=== PATIENT | female | born 1980 | race Caucasian/White ===

== ENCOUNTER 2020-09-20 10:41 | Emergency (ER) | payer OTHER, SELFPAY ==
[2020-09-20 11:09] VITALS: PULSE 87; RESP 20; O2SAT 98; BMI 46.7
[2020-09-20 11:16] VITALS: RESP 20
--- NOTE | 2020-09-20 11:20 | PC.NURSE ---
Pt alert, affect angry, pt angry re: unit protocol re changeover and telephone stating 'I'm here to get help and you guys are adding to my problems.' Pt declined to remove hat. Pt stated that she would not give up scratch tickets and went to her room to complete. Pt states she has an MD and therapist. CARE team notified for consult. Upon introducing themselves to pt and stating that they would be in to see her, pt replied : 'I can't wait.'
--- NOTE | 2020-09-20 11:29 | PC.NURSE ---
CARE team in to assess.
--- NOTE | 2020-09-20 11:42 | PC.NURSE ---
CARE team evaluated pt, recommending full eval w/ BHN. Pt aware, continues to be very angry, stating that staff are not listening to her, because if they were, she should be allowed the coffee she came in with. Explained to pt that unit policy is that patients cannot bring in unsealed foods.
--- NOTE | 2020-09-20 11:44 | ED_ITS ---
HPI - Psych General Chief Complaint: Psychiatric Symptoms <JUAN Sánchez - Last Filed: 09/20/20 16:38> Stated Complaint: crisis <JUAN Sánchez - Last Filed: 09/20/20 16:38> Time Seen by Provider: 09/20/20 11:25 <JUAN Sánchez - Last Filed: 09/20/20 16:38> History of Present Illness HPI Narrative: Patient came in today complaining of feeling agitated distressed overwhelmed depressed, denies suicidal thoughts, has not taken any action to harm herself today, no homicidal thoughts no thoughts of harming individual, she does not hear voices and is not seeing things, she does not do street drugs or alcohol She has no complaint of any recent injury or illness <JUAN Sánchez Last Filed: 09/20/20 16:38> Related Data Home Medications: Home Medications Medication Instructions Recorded Confirmed Multivitamin, Vitamin C, Vitamin PO DAILY 09/20/20 D, Magnesium bupropion HCl [Wellbutrin XL] 150 mg PO QAM 09/20/20 09/20/20 gabapentin 300 mg PO TID 09/20/20 09/20/20 pantoprazole 20 mg PO QAM 09/20/20 09/20/20 trazodone 50 mg PO BEDTIME 09/20/20 09/20/20 venlafaxine 150 mg PO QAM 09/20/20 09/20/20 <JUAN Sánchez - Last Filed: 09/20/20 16:38> Allergies/Adverse Reactions: Allergies Allergy/AdvReac Type Severity Reaction Status Date / Time benztropine [BENZTROPINE] Allergy Intermediate Blurred Unverified 05/08/20 16:53 Vision clindamycin [CLINDAMYCIN] AdvReac Intermediate DIARRHEA Unverified 05/08/20 16:53 antibiotic- type not known Allergy Unknown unknown Uncoded 05/08/20 16:53 Clindamycin HCl Allergy Unknown Uncoded 09/18/19 00:00 <JUAN Sánchez - Last Filed: 09/20/20 16:38> Review of Systems Review of Systems: The patient has no headache no fever no chills no dizziness no weakness no confusion no neck pain no chest pain no abdominal pain no shortness of breath no nausea no vomiting, no cough no sore throat no respiratory complaints <JUAN Sánchez - Last Filed: 09/20/20 16:38> Yes all other systems are reviewed and are negative <JUAN Sánchez - Last Filed: 09/20/20 16:38> [facility] Past Medical History Attestation statement: The following information was validated with the patient. <JUAN Sánchez - Last Filed: 09/20/20 16:38> [facility] Narrative: Patient has history of depression and has a therapist and has had psychiatric issues in the past, and is prescribed Wellbutrin venlaxifine and trazodone, not clear if she is compliant with medications <JUAN Sánchez - Last Filed: 09/20/20 16:38> Surgical History: Surgical History (Updated 09/20/20 @ 11:13 by Margarita Gonzalez) History of bariatric surgery History of dilatation and curettage <JUAN Sánchez - Last Filed: 09/20/20 16:38> Social History Social History: Social History Smoking Status: Never smoker Smoked in Last 30 Days: No Use of substances other than those prescribed or required for medical reasons: No Advance Directives: No Advance Directives Information Provided: No <JUAN Sánchez - Last Filed: 09/20/20 16:38> Physical Exam Vital Signs: Vital Signs: Last Vital Signs Pulse 87 09/20/20 11:09 Resp 09/20/20 14:00 BP 139/72 09/20/20 11:47 Pulse Ox 98 09/20/20 11:09 Body Mass Index 46.7 <JUAN Sánchez - Last Filed: 09/20/20 16:38> Vital Signs: Last Vital Signs Pulse 87 09/20/20 11:09 Resp 09/20/20 14:00 BP 139/72 09/20/20 11:47 Pulse Ox 98 09/20/20 11:09 Body Mass Index 46.7 <Arin Soler MD - Last Filed: 09/20/20 13:13> Patient is A&O x3, cooperative, anxious and irritated but understands questions and responds with clear and good comprehension, no acute distress Head is normocephalic atraumatic The neck is supple and nontender The chest is clear to auscultation bilaterally with full symmetric equal breath sounds no chest wall tenderness Heart rate and rhythm regular no murmur Abdomen soft nontender Extremities full range of motion x4 Skin no rashes Neuro no focal deficit, cranial nerves 2-12 intact as tested, cerebellar and gait are normal, verbal comprehension is normal, no focal deficits <JUAN Sánchez - Last Filed: 09/20/20 16:38> Course Reevaluation(s) Reevaluation #1: I personally physically examined patient and the PA chin area, patient appeared anxious, slightly agitated, but patient has no SI, no HI, no hallucinat ion, no psychotic feature behavior, patient do not meet criteria for chemical/physical restraints or Section 12. I spoke with the patient was able to calm the patient down and wait for BHN and for further evaluation. Patient is requesting to discuss with her own therapist I requested from the Care Team Yael to talk to her therapist and let the patient know. Will reassess the patient. <Arin Soler MD - Last Filed: 09/20/20 13:13> Time: 13:13 <Arin Soler MD - Last Filed: 09/20/20 13:13> MDM - Psych MDM Narrative Medical decision making narrative: Patient came to the ER complaining that she was angry and feeling like things she was doing were not working and feeling agitated She never expressed thoughts of self-harm she has not harmed herself she denies any drug use or alcohol use, she is alert and oriented and understood everything in our conversation and answered clearly with good understanding, she was upset that she could not get her coffee from the locker, the coffee was taken as she is not allowed to bring outside food or drink, and she was irritated at the [facility] of time to get her crisis evaluation She was not a candidate for Section 12 as she has no desire to harm anyone or to harm herself, she denies all suicidal ideation she has no suicidal plan, she has no desire to harm anyone, she never engaged in any violent or threatening behavior here, and she has no homicidal or violent thoughts towards any person she is not intoxicated she is not hearing voices and there was no basis for chemical restraint or Section 12 and patient was discharged when she requested to go Efforts were made to the convince patient to stay including asking my attending physician Dr. Soler to see her and she understood that she was welcome to stay to complete the crisis evaluation but she wanted to go <JUAN Sánchez - Last Filed: 09/20/20 16:38> Restraints Face to Face Assessment: Face to Face Assessment: Current Situation: After assessment of the patient, a review of the pertinent medical record and a discussion with nursing staff, I feel the patient requires a restrain intervention. Reaction To: [] Medical Condition: [] Behavioral State: [] Continued Need: [] <JUAN Sánchez - Last Filed: 09/20/20 16:38> Lab Data Result diagrams: : 09/20/20 11:52 09/20/20 11:52 <JUAN Sánchez - Last Filed: 09/20/20 16:38> Labs: Lab Results 09/20/20 09/20/20 09/20/20 Range/Units 11:52 11:52 11:52 WBC 9.5 (4.8-10.8) X10*3/uL RBC 5.06 (4.20-5.50) X10*6/uL Hgb 12.8 (12.0-16.0) g/dl Hct 41.2 (37-47) % MCV 81.4 (80-98) fL MCH 25.3 L (27.0-33.0) pg MCHC 31.1 (31.0-35.0) g/dl RDW 14.1 (11.0-16.0) % Plt Count 425 H (160-400) X10*3/uL MPV 9.0 L (9.4-12.3) fL Immature Gran % (Auto) 0.2 (0.0-0.4) % Neut % (Auto) 74.4 H (45-73) % Lymph % (Auto) 16.4 L (20-40) % [place] % (Auto) 5.0 (2-11) % Eos % (Auto) 3.6 (0-4) % Baso % (Auto) 0.4 (0-2) % Lymph # (Auto) 1.6 (1.2-4.9) X10*3/uL [place] # (Auto) 0.5 (0.1-1.2) X10*3/uL Eos # (Auto) 0.3 (0.0-0.4) X10*3/uL Baso # (Auto) 0.0 (0.0-0.2) X10*3/uL Abs Immat Gran (auto) 0.02 (0.00-0.03) X10*3/uL Absolute Neuts (auto) 7.1 (2.0-8.3) X10*3/uL Absolute Nucleated RBC 0.000 (0.0-0.012) X10*3/uL Nucleated RBC % (auto) 0.0 (0.0-0.2) /100WBC Sodium 141 (135-145) mmol/L Potassium 4.6 (3.3-5.1) mmol/L Chloride 104 (96-108) mmol/L Carbon Dioxide 28 (22-29) mmol/L Anion Gap 14 (12-20) BUN 21 H (9-16) mg/dL Creatinine 0.77 (0.5-1.4) mg/dL Estim Creat Clear Calc 133.8 Estimated GFR > 60 Random Glucose 120 H (60-115) mg/dL Calcium 8.9 (8.4-10.2) mg/dL Total Bilirubin 0.4 (0.0-1.0) mg/dL AST 14 (5-31) U/L ALT 21 (0-31) U/L Alkaline Phosphatase 89 (39-117) U/L Total Protein 7.3 (6.5-8.0) g/dL Albumin 4.1 (3.5-5.0) g/dL Urine Test (NEGATIVE) Salicylates < 5.0 L (15-30) mg/dL Urine Opiates Screen (Not Detect) Acetaminophen < 1 (<30) mcg/mL Ur Barbiturates Screen (Not Detect) Ur Phencyclidine Scrn (Not Detect) Ur Amphetamines Screen (Not Detect) U Benzodiazepines Scrn (Not Detect) Urine Cocaine Screen (Not Detect) U Marijuana (THC) Screen (Not Detect) Ethyl Alcohol < 10 mg/dL 09/20/20 09/20/20 Range/Units 14:18 14:18 WBC (4.8-10.8) X10*3/uL RBC (4.20-5.50) X10*6/uL Hgb (12.0-16.0) g/dl Hct (37-47) % MCV (80-98) fL MCH (27.0-33.0) pg MCHC (31.0-35.0) g/dl RDW (11.0-16.0) % Plt Count (160-400) X10*3/uL MPV (9.4-12.3) fL Immature Gran % (Auto) (0.0-0.4) % Neut % (Auto) (45-73) % Lymph % (Auto) (20-40) % [place] % (Auto) (2-11) % Eos % (Auto) (0-4) % Baso % (Auto) (0-2) % Lymph # (Auto) (1.2-4.9) X10*3/uL [place] # (Auto) (0.1-1.2) X10*3/uL Eos # (Auto) (0.0-0.4) X10*3/uL Baso # (Auto) (0.0-0.2) X10*3/uL Abs Immat Gran (auto) (0.00-0.03) X10*3/uL Absolute Neuts (auto) (2.0-8.3) X10*3/uL Absolute Nucleated RBC (0.0-0.012) X10*3/uL Nucleated RBC % (auto) (0.0-0.2) /100WBC Sodium (135-145) mmol/L Potassium (3.3-5.1) mmol/L Chloride (96-108) mmol/L Carbon Dioxide (22-29) mmol/L Anion Gap (12-20) BUN (9-16) mg/dL Creatinine (0.5-1.4) mg/dL Estim Creat Clear Calc Estimated GFR Random Glucose (60-115) mg/dL Calcium (8.4-10.2) mg/dL Total Bilirubin (0.0-1.0) mg/dL AST (5-31) U/L ALT (0-31) U/L Alkaline Phosphatase (39-117) U/L Total Protein (6.5-8.0) g/dL Albumin (3.5-5.0) g/dL Urine Test NEGATIVE (NEGATIVE) Salicylates (15-30) mg/dL Urine Opiates Screen Not Detected (Not Detect) Acetaminophen (<30) mcg/mL Ur Barbiturates Screen Not Detected (Not Detect) Ur Phencyclidine Scrn Not Detected (Not Detect) Ur Amphetamines Screen Not Detected (Not Detect) U Benzodiazepines Scrn Not Detected (Not Detect) Urine Cocaine Screen Not Detected (Not Detect) U Marijuana (THC) Screen Not Detected (Not Detect) Ethyl Alcohol mg/dL <Elvin JUAN Xie - Last Filed: 09/20/20 16:38> Lab Results 09/20/20 09/20/20 09/20/20 Range/Units 11:52 11:52 11:52 WBC 9.5 (4.8-10.8) X10*3/uL RBC 5.06 (4.20-5.50) X10*6/uL Hgb 12.8 (12.0-16.0) g/dl Hct 41.2 (37-47) % MCV 81.4 (80-98) fL MCH 25.3 L (27.0-33.0) pg MCHC 31.1 (31.0-35.0) g/dl RDW 14.1 (11.0-16.0) % Plt Count 425 H (160-400) X10*3/uL MPV 9.0 L (9.4-12.3) fL Immature Gran % (Auto) 0.2 (0.0-0.4) % Neut % (Auto) 74.4 H (45-73) % Lymph % (Auto) 16.4 L (20-40) % [place] % (Auto) 5.0 (2-11) % Eos % (Auto) 3.6 (0-4) % Baso % (Auto) 0.4 (0-2) % Lymph # (Auto) 1.6 (1.2-4.9) X10*3/uL [place] # (Auto) 0.5 (0.1-1.2) X10*3/uL Eos # (Auto) 0.3 (0.0-0.4) X10*3/uL Baso # (Auto) 0.0 (0.0-0.2) X10*3/uL Abs Immat Gran (auto) 0.02 (0.00-0.03) X10*3/uL Absolute Neuts (auto) 7.1 (2.0-8.3) X10*3/uL Absolute Nucleated RBC 0.000 (0.0-0.012) X10*3/uL Nucleated RBC % (auto) 0.0 (0.0-0.2) /100WBC Sodium 141 (135-145) mmol/L Potassium 4.6 (3.3-5.1) mmol/L Chloride 104 (96-108) mmol/L Carbon Dioxide 28 (22-29) mmol/L Anion Gap 14 (12-20) BUN 21 H (9-16) mg/dL Creatinine 0.77 (0.5-1.4) mg/dL Estim Creat Clear Calc 133.8 Estimated GFR > 60 Random Glucose 120 H (60-115) mg/dL Calcium 8.9 (8.4-10.2) mg/dL Total Bilirubin 0.4 (0.0-1.0) mg/dL AST 14 (5-31) U/L ALT 21 (0-31) U/L Alkaline Phosphatase 89 (39-117) U/L Total Protein 7.3 (6.5-8.0) g/dL Albumin 4.1 (3.5-5.0) g/dL Urine Test (NEGATIVE) Salicylates < 5.0 L (15-30) mg/dL Urine Opiates Screen (Not Detect) Acetaminophen < 1 (<30) mcg/mL Ur Barbiturates Screen (Not Detect) Ur Phencyclidine Scrn (Not Detect) Ur Amphetamines Screen (Not Detect) U Benzodiazepines Scrn (Not Detect) Urine Cocaine Screen (Not Detect) U Marijuana (THC) Screen (Not Detect) Ethyl Alcohol < 10 mg/dL 09/20/20 09/20/20 Range/Units 14:18 14:18 WBC (4.8-10.8) X10*3/uL RBC (4.20-5.50) X10*6/uL Hgb (12.0-16.0) g/dl Hct (37-47) % MCV (80-98) fL MCH (27.0-33.0) pg MCHC (31.0-35.0) g/dl RDW (11.0-16.0) % Plt Count (160-400) X10*3/uL MPV (9.4-12.3) fL Immature Gran % (Auto) (0.0-0.4) % Neut % (Auto) (45-73) % Lymph % (Auto) (20-40) % [place] % (Auto) (2-11) % Eos % (Auto) (0-4) % Baso % (Auto) (0-2) % Lymph # (Auto) (1.2-4.9) X10*3/uL [place] # (Auto) (0.1-1.2) X10*3/uL Eos # (Auto) (0.0-0.4) X10*3/uL Baso # (Auto) (0.0-0.2) X10*3/uL Abs Immat Gran (auto) (0.00-0.03) X10*3/uL Absolute Neuts (auto) (2.0-8.3) X10*3/uL Absolute Nucleated RBC (0.0-0.012) X10*3/uL Nucleated RBC % (auto) (0.0-0.2) /100WBC Sodium (135-145) mmol/L Potassium (3.3-5.1) mmol/L Chloride (96-108) mmol/L Carbon Dioxide (22-29) mmol/L Anion Gap (12-20) BUN (9-16) mg/dL Creatinine (0.5-1.4) mg/dL Estim Creat Clear Calc Estimated GFR Random Glucose (60-115) mg/dL Calcium (8.4-10.2) mg/dL Total Bilirubin (0.0-1.0) mg/dL AST (5-31) U/L ALT (0-31) U/L Alkaline Phosphatase (39-117) U/L Total Protein (6.5-8.0) g/dL Albumin (3.5-5.0) g/dL Urine Test NEGATIVE (NEGATIVE) Salicylates (15-30) mg/dL Urine Opiates Screen Not Detected (Not Detect) Acetaminophen (<30) mcg/mL Ur Barbiturates Screen Not Detected (Not Detect) Ur Phencyclidine Scrn Not Detected (Not Detect) Ur Amphetamines Screen Not Detected (Not Detect) U Benzodiazepines Scrn Not Detected (Not Detect) Urine Cocaine Screen Not Detected (Not Detect) U Marijuana (THC) Screen Not Detected (Not Detect) Ethyl Alcohol mg/dL <Ahmed Elmogy, MD - Last Filed: 09/20/20 13:13> Discharge Plan Discharge Clinical Impression: Depression Qualifiers: Depression Type: unspecified Qualified Code(s): F32.9 - Major depressive disorder, single episode, unspecified <JUAN Sánchez - Last Filed: 09/20/20 16:38> Patient Disposition: Home, Self-Care <JUAN Sánchez - Last Filed: 09/20/20 16:38> Additional Instructions: I am sorry you were not able to stay for the crisis evaluation Return any time if you change your mind Follow with your therapist <JUAN Sánchez - Last Filed: 09/20/20 16:38> Prescriptions: No Action trazodone 50 mg Tablet 50 mg PO BEDTIME RF: 0 venlafaxine 150 mg Capsule,Extended Release 24hr 150 mg PO QAM RF: 0 pantoprazole 20 mg Tablet,Delayed Release (Dr/Ec) 20 mg PO QAM RF: 0 gabapentin 300 mg Capsule 300 mg PO TID RF: 0 bupropion HCl [Wellbutrin XL] 150 mg Tablet Extended Release 24 Hr 150 mg PO QAM RF: 0 Multivitamin, Vitamin C, Vitamin D, Magnesium PO DAILY RF: 0 <JUAN Sánchez - Last Filed: 09/20/20 16:38> Interventions: ED Discharge Assessment Last Done: 09/20/20 14:42 <JUAN Sánchez - Last Filed: 09/20/20 16:38> Discharge Date/Time: 09/20/20 14:44 <JUAN Sánchez - Last Filed: 09/20/20 16:38>
[2020-09-20 11:47] VITALS: BP 139/72
[2020-09-20 11:57] LABS: MANUAL DIFF FLAG NO
[2020-09-20 12:00] VITALS: RESP 20
[2020-09-20 12:00] LABS: Basophils Percent Auto 0.4 % (0-2); Eosinophils Absolute Auto 0.3 X10*3/uL (0.0-0.4); Eosinophils Percent Auto 3.6 % (0-4); Hematocrit 41.2 % (37-47); Hemoglobin 12.8 g/dl (12.0-16.0); Imm Gran Abs Auto 0.02 X10*3/uL (0.00-0.03); Imm Gran Pct Auto 0.2 % (0.0-0.4); Lymphocytes Absolute Auto 1.6 X10*3/uL (1.2-4.9); Lymphocytes Percent Auto 16.4 % (20-40); Mean Corpuscular HGB Conc 31.1 g/dl (31.0-35.0); Mean Corpuscular Hemoglobin 25.3 pg (27.0-33.0); Mean Corpuscular Volume 81.4 fL (80-98); Monocytes Absolute Auto 0.5 X10*3/uL (0.1-1.2); Neutrophils Absolute Auto 7.1 X10*3/uL (2.0-8.3); Neutrophils Percent Auto 74.4 % (45-73); Platelet Count 425 X10*3/uL (160-400); Red Blood Count 5.06 X10*6/uL (4.20-5.50); Red Cell Distribution Width 14.1 % (11.0-16.0); White Blood Count 9.5 X10*3/uL (4.8-10.8)
--- NOTE | 2020-09-20 12:09 | PC.NURSE ---
Pt continues to be very angry. Leslee Liriano notified that pt would like to go home, provider completing a section 12. Pt aware that provider requesting crisis evaluation before discharge. Pt aware, very angry, sitting in front of locker. Pt stating that she was not notified that she would have to give up her coffee, etc, before arriving to the pod and requesting to speak to supervisor ovens. Ecclesiastical Worker notified. Pt offered medication to help reduce anxiety but pt declined several times.
[2020-09-20 12:20] LABS: Ethanol < 10 mg/dL
[2020-09-20 12:25] LABS: Acetaminophen LAB < 1 mcg/mL (<30); Alanine Aminotransferase 21 U/L (0-31); Albumin Level 4.1 g/dL (3.5-5.0); Alkaline Phosphatase 89 U/L (39-117); Anion Gap 14 (12-20); Aspartate Amino Transferase 14 U/L (5-31); Bilirubin Total 0.4 mg/dL (0.0-1.0); Blood Urea Nitrogen 21 mg/dL (9-16); Calcium 8.9 mg/dL (8.4-10.2); Carbon Dioxide 28 mmol/L (22-29); Chloride 104 mmol/L (96-108); Creatinine Clr Calc Pharmacy 133.8; Estimated Glomerular Filt Rate > 60; Glucose Random 120 mg/dL (60-115); Potassium 4.6 mmol/L (3.3-5.1); Sodium 141 mmol/L (135-145); Total Protein 7.3 g/dL (6.5-8.0)
[2020-09-20 12:36] LABS: Salicylate < 5.0 mg/dL (15-30)
--- NOTE | 2020-09-20 12:49 | PC.NURSE ---
[facility] faxed and called. They will not have a clinician available to see pt until 5pm or 6pm today. CARE team aware.
--- NOTE | 2020-09-20 12:54 | PC.NURSE ---
Pt continues to be angry, demanding to see provider and canal equipment maintenance supervisor. Both notified and in to speak w/ pt. Pt contiinues to be focused on her coffee. CARE team in, and speaking w/ pt. Leslee Liriano to speak w/ attending re: pt's request to be discharged.
--- NOTE | 2020-09-20 13:22 | PC.NURSE ---
CARE team, playground supervisor, Adeel Luu in to speak with pt. Pt denies SI/HI to all, but now no longer requesting discharge. Pt wants CARE team to speak with her therapist. CARE team called therapist as requested by pt, and left message. Pt currently sitting in common area, watching television- pt declined lunch, continues to decline medication.
--- NOTE | 2020-09-20 13:26 | MHC.CARE ---
Pt was requesting to leave and despite numerous attempts and offers by CARE team pt would not engage. Pt continued to state that I just want to leave, I cam in here on my own and I will leave on my own . Pt stated you all are just making it worse for me . Pt was demanding to leave, would turn her back to t/w and refuse to speak to any staff other than the ED provider. Two ED providers came in at 1315 to speak with her and pt continued to demand to leave. Pt asked the ED providers to have someone call her therapist to prove that she can go home according to pt. Pt provided the number of her therapist (Doug) in private practice [phone]. When t/w went to make this call pt informed the POD nurse that she wanted to be present for the call . T/w went to meet with pt again to place this call and she was on the pod phone speaking to someone about how she is looking to leave and how upset she is about being here.Pt is currently not on a section 12a, she came on her own seeking help and became escalated and disinterested in tx when she needed to lock up her iced coffee and cell phone. Pt was willing to work with ED provider about a collateral phone call to her therapist and was willing to wait. T/w made the call in the room where pt was sitting as she declined to move to a private setting, then once the call was commenced pt exited the room and moved to watch TV in another room. The therapist did not answer and t/w left a message with CARE team number as well as main ED number for call back. T/w informed pt that a message was left and she would not look or speak to t/w and stated yup . T/w informed ED provider of this and the tentative plan for right now is to let her calm down for a while and proceed from there. TBD if pt will have a crisis assessment. Pt was observed calm and eating lunch when t/w returned to the POD to inform POD nurse.
[2020-09-20 14:00] VITALS: RESP 20
--- NOTE | 2020-09-20 14:13 | PC.NURSE ---
Pt rested briefly, now up, requesting ibuprofen fro headache. Attempted to reach provider, unable at this time.
--- NOTE | 2020-09-20 14:21 | PC.NURSE ---
Per Dr Soler, ibuprofen not recommended- pt offered Tylenol, but now pt declining any pain medication.
--- NOTE | 2020-09-20 14:27 | PC.NURSE ---
Pt states 'i'm throwing in the towel' states she would like to be discharged. B Heri aware, and in to evaluate.
[2020-09-20 14:32] LABS: UPreg QC Valid YES; Urine Pregnancy NEGATIVE (NEGATIVE)
--- NOTE | 2020-09-20 14:39 | PC.NURSE ---
Pt continuing to request to leave. No other concerns verbalized. Pt given discharge [id number], verbalized understanding.
--- NOTE | 2020-09-20 14:54 | MHC.CARE ---
Pt remained while awaiting call back from therapist which a return call never occurred. Pt gave verbal consent only for this and pt asked POD nurse to be discharged which the ED provider was in full support of. Pt was irritable but pleased to be discharging.
[2020-09-20 15:02] LABS: Amphetamine Screen Urine Not Detected (Not Detect); Barbiturates, Urine Not Detected (Not Detect); Benzodiazepines Screen Urine Not Detected (Not Detect); Cannabinoid Screen Urine Not Detected (Not Detect); Cocaine Screen Urine Not Detected (Not Detect); Opiate Screen Urine Not Detected (Not Detect); Phencyclidine Screen Urine Not Detected (Not Detect)
== END 2020-09-20 14:44 | disposition home or self-care (01) ==
PROVIDERS: Emergency Provider Emergency Medicine
DX: F32.9 Major depressive disorder, single episode, unspecified (principal); R45.1 Restlessness and agitation; Z98.84 Bariatric surgery status; Z79.899 Other long term (current) drug therapy
CPT/HCPCS: 80053; 80307; 80320; 81025; 85025; 99284; 99285; G0480

== ENCOUNTER → 2020-12-16 15:44 | Outpatient (BNVA) | payer OTHER, SELFPAY | PROVIDERS: PCP Internal Medicine; Visit Provider Surgery | DX: E66.01 Morbid (severe) obesity due to excess calories (principal); Z68.42 Body mass index [BMI] 45.0-49.9, adult; Z90.3 Acquired absence of stomach [part of] | CPT/HCPCS: 99202 ==

== ENCOUNTER → 2021-01-06 15:37 | Outpatient (BNVA) | payer OTHER, SELFPAY | PROVIDERS: PCP Internal Medicine; Visit Provider Surgery | DX: E66.01 Morbid (severe) obesity due to excess calories (principal); Z68.42 Body mass index [BMI] 45.0-49.9, adult | CPT/HCPCS: 99212 ==